=== PATIENT | male | born 1930 | race Caucasian/White ===

== ENCOUNTER 2017-01-11 09:23 | Day surgery (SDC) | payer OTHER ==
[2017-01-06 10:22] LABS: BASOPHILS 0.2 %; BASOPHILS ABSOLUTE 0.01 10/3/uL (0.0-0.16); HEMATOCRIT 43.5 % (40.0-51.0); HEMOGLOBIN 14.9 g/dL (13.6-17.8); IMMATURE GRANULOCYTES 0.2 %; IMMATURE GRANULOCYTES ABSOLUTE 0.01 10/3/uL (0.0-0.11); LYMPHOCYTES 26.5 %; MEAN CORPUS HGB CONC 34.3 g/dL (32.0-36.0); MEAN CORPUSCULAR VOLUME 96.5 fL (80-100); MEAN PLATELET VOLUME 9.4 fL (9.2-13.0); MONOCYTES 8.8 %; MONOCYTES ABSOLUTE 0.43 10/3/uL (0.21-1.20); NEUTROPHILS 62.3 %; NEUTROPHILS ABSOLUTE 3.06 10/3/uL (2.02-8.40); PLATELET COUNT 136 10/3/uL (150-400); RBC DISTRIBUTION WIDTH 12.7 % (12.0-16.0); RED CELL COUNT 4.51 10/6/uL (4.7-6.1); WHITE BLOOD CELLS 4.9 10/3/uL (4.5-10.5)
[2017-01-06 10:23] LABS: MANUAL DIFF NO %
[2017-01-06 10:40] LABS: A/G RATIO 1.7 (0.7-1.9); ALKALINE PHOSPHATASE 110 U/L (45-117); BUN (BLOOD UREA NITROGEN) 7 MG/DL (6-23); CALCIUM, SERUM 9.2 MG/DL (8.5-10.4); CHLORIDE, SERUM 105 MMOL/L (96-112); CO2 (CARBON DIOXIDE) 29 MMOL/L (24-34); CREATININE 0.55 MG/DL (0.70-1.30); GFR AFRICAN AMERICAN 109 ML/MIN (>=60); GFR NON AFRICAN AMERICAN 94 ML/MIN (>=60); GLOBULIN 2.4 G/DL (2.5-4.1); GLUCOSE, SERUM 91 MG/DL (60-99); POTASSIUM, SERUM 4.2 MMOL/L (3.5-5.3); SGOT(AST) 18 U/L (5-40); SGPT(ALT) 18 U/L (5-65); SODIUM, SERUM 142 MMOL/L (135-148); TOTAL BILIRUBIN 0.6 MG/DL (0-1.2); TOTAL PROTEIN 6.4 G/DL (6.0-8.5)
--- NOTE | ~2017-01-11 | OP ---
Record Of Operation [facility] [address] [place]. [address] NAME: ROB JOHNSON : 30 STATUS : [facility]#: [id number] AGE: 86 ADM/REG DATE : 01/11/17 MR#: [id number] REPORT SERV DATE: 01/12/17 DICTATED BY: ERIK HORNER JR. DATE: 01/11/17 REPORT STATUS : Draft TRANSCRIBED BY: MODL DATE: 01/11/17 DATE OF PROCEDURE: 01/11/2017 SURGEON: Erik Horner M.D. RADIO DISPATCHER: Gretchen Marley. 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 ANESTHESIA: General. INDICATIONS: The patient had a pigmented lesion of the right arm and also lesion left forehead. A biopsy lesion of arm demonstrated melanoma which was greater than 4 mm. Staging workup did not show evidence of metastatic disease. There was a liver lesion, but this was biopsied and found to be non malignant. Shave biopsy of the same region showed nodular basal cell carcinoma. A wide excision of both carcinoma along with sentinel mapping and biopsy for regional staging was indicated. FINDINGS: For the basal cell carcinoma, a 0.5 cm margin on around the lesion was excised initially in full-thickness fashion and pathology did show extensive deep margin involvement, therefore the deep fascia was excised, and this was grossly negative. This did leave a defect which was repaired with a split-thickness graft over approximately 2 x 2.5 cm area. For the melanoma, this was excised 4.4 cm lesion. This was repaired with split-thickness skin graft in the arm over a 4 x 4 cm area. In the axilla, the mapping by lymphoscintigraphy showed mapping the axilla, which showed 2 adjacent nodes. These were excised with a 10 second count of 3769. No significant residual background, final diagnosis deferred to permanent section. DESCRIPTION OF PROCEDURE: With adequate general anesthesia, the patient was placed in supine position. The left side of the face and neck along with the right axilla and right upper extremity were prepped and draped sterilely. Attention was turned to the left forehead where 0.5 cm margin was outlined. Excision was made and full-thickness excision undertaken. This was submitted as noted, and the deep fascia was reexcised. Portion of the temporal artery was excised as well. This was secured with ligatures of Vicryl. Further bleeding controlled with electrocautery. The skin edges were advanced with 3-0 silks. Split- thickness graft was harvested at right thigh, 0.18 inch, it was pie crusted and place to cover the defect and securing with Dermabond glue. An overlay pressure dressing with a Record Of Operation [place] [id number] [facility] [place]. [address] NAME: ROB JOHNSON : 30 STATUS : [facility] PAT#: [id number] AGE: 86 ADM/REG DATE : 01/11/17 MR#: [id number] REPORT SERV DATE: 01/12/17 DICTATED BY: ERIK HORNER JR. DATE: 01/11/17 REPORT STATUS : Draft TRANSCRIBED BY: ROJELIO DATE: 01/11/17 Restore contact layer and gauze was undertaken. This was secured in place with the stay sutures. For the right arm, a 2 cm margin on around the previous melanoma excision site and a radical excision of skin, subcutaneous tissue underlying fascia undertaken. This was submitted to pathology with appropriate orientation. Again, skin edges were advanced with 3-0 silk and the graft was harvested from the right thigh, pie crusted and placed to cover the defect. It was secured to the edges with 5-0 Monocryl and then restored and pressure dressing was placed well, securing this with the silk sutures. In the axilla, incision was made overlying the area of maximum gamma probe activity and incision deepened down through the deep axilla. The gamma probe detection nodes were identified. These were in level 1. These were excised sharply from surrounding tissues, securing bleeders with electrocautery and clips. The node was submitted to pathology as noted. The wound was closed with deep 3-0 Vicryl and subcuticular Monocryl. Sterile dressings were applied. The patient left the operating room in satisfactory condition. ESTIMATED BLOOD LOSS: 30 mL. LUPE/ROJELIO Erik Horner Jr., M.D. / [id number] CC: Clarice Maya Jr., M.D.
[~2017-01-11 09:23] MED LIST: FLOMAX4 PO; FLONASE NAS
== END 2017-01-11 18:56 | disposition home or self-care (01) ==
LOC: SDC 09:23
PROVIDERS: Specialist
PROC: 0JB10ZZ Excision of Face Subcutaneous Tissue and Fascia, Open Approach (ICD-10-PCS; principal; 2017-01-11 12:15)
PROC: 07B50ZX Excision of Right Axillary Lymphatic, Open Approach, Diagnostic (ICD-10-PCS; 2017-01-11 12:15)
DX: C44.319 Basal cell carcinoma of skin of other parts of face (principal); Z95.0 Presence of cardiac pacemaker; Z88.2 Allergy status to sulfonamides; Z79.51 Long term (current) use of inhaled steroids; Z79.899 Other long term (current) drug therapy
CPT/HCPCS: 71020; 78195; 80053; 83615; 85025; 88305; 88307; 88331; 88332; 88341; 88342; 93005; A9541; J0690; J2250; J2405; J3010; Q4102